=== PATIENT | male | born 2005 ===

== ENCOUNTER 2025-04-09 19:03 | Emergency (ER) | payer SELFPAY ==
[2025-04-09 19:04] VITALS: BP 133/97; PULSE 115; RESP 15; TEMP 36.1; O2SAT 97; BMI 26.2
== END 2025-04-09 19:57 | disposition left against medical advice (07) ==
LOC: ED 19:59
DX: Z53.21 Procedure and treatment not carried out due to patient leaving prior to being seen by health care provider (principal)